=== PATIENT | female | born 1985 | race Caucasian/White ===

== ENCOUNTER 2018-06-08 11:33 | Inpatient (IN) | payer OTHER ==
[~2018-06-08 11:33] MED LIST: OXYTOCIN 30 UNITS/LR 500 ML BAG IV; PROPOFOL 200 MG INJ
[2018-06-08 12:43] LABS: ADD MAN DIFF? NO
[2018-06-08 12:49] LABS: BASOPHILS % 0.4 % (0.0-2.0); EOSINOPHILS # 0.2 10^3/ul (0.0-0.5); EOSINOPHILS % 2.9 % (0.0-7.0); HEMATOCRIT 32.1 % (37.0-47.0); HEMOGLOBIN 10.6 g/dl (12.0-16.0); LYMPHOCYTES # 1.1 10^3/ul (0.8-2.9); LYMPHOCYTES % 15.3 % (15.0-51.0); MEAN CORPUSCULAR HEMOGLOBIN 29.8 pg (29.0-33.0); MEAN CORPUSCULAR VOLUME 90.2 fl (82.0-101.0); MEAN PLATELET VOLUME 10.2 fl (7.4-10.4); MONOCYTE # 0.5 10^3/ul (0.3-0.9); MONOCYTES % 6.5 % (0.0-11.0); NEUTROPHIL # 5.1 10^3/ul (1.6-7.5); NEUTROPHILS % 74.3 % (39.0-77.0); PLATELET COUNT 214 10^3/UL (140-415); RED BLOOD COUNT 3.56 10^6/ul (4.20-5.40); RED CELL DISTRIBUTION WIDTH 13.1 % (11.5-14.5)
[2018-06-08 12:49] LABS: WHITE BLOOD COUNT 6.9 10^3/ul (4.8-10.8)
[2018-06-08] MEDS: LACTATED RINGER'S 1,000 ML IV (12:58)
[2018-06-08 13:08] LABS: INR 0.95; PROTIME 12.8 Sec (11.9-14.9)
[2018-06-08 13:09] LABS: PARTIAL THROMBOPLASTIN TIME 26.7 Sec (23.0-35.0)
[2018-06-08] MEDS: LABETALOL HCL 20MG INJ IV ×2 (13:25→19:20)
[2018-06-08] MEDS ORDERED: MISOPROSTOL 200 MCG TAB PR ×2 (13:30→15:30)
[2018-06-08] MEDS: MAGNESIUM SULFATE 4 GM/100 ML 100 ML IV (13:30)
[2018-06-08] MEDS ORDERED: LEVALBUTEROL (NEB) 1.25 MG/0.5 ML AMP HHN (13:30)
[2018-06-08] MEDS ORDERED: OXYTOCIN 30 UNITS/LR 500 ML IV ×2 (13:30→15:30)
[2018-06-08] MEDS ORDERED: CARBOPROST 250 MCG INJ IM ×2 (13:30→15:30)
[2018-06-08] MEDS ORDERED: METHYLERGONOVINE 0.2 MG INJ IM (13:30)
[2018-06-08] MEDS ORDERED: LABETALOL HCL 20MG INJ IV (13:30)
[2018-06-08] MEDS ORDERED: FENTAnyl 50 MCG/ML VIAL IV ×2 (13:30)
[2018-06-08] MEDS ORDERED: DIPHENHYDRAMINE 50 MG INJ IV ×3 (13:30→15:30)
[2018-06-08] MEDS ORDERED: ZOLPIDEM 5 MG TAB PO (13:30)
[2018-06-08] MEDS ORDERED: ONDANSETRON 4 MG INJ IV ×3 (13:30→15:30)
[2018-06-08] MEDS ORDERED: KETOROLAC 30 MG INJ IV (13:30)
[2018-06-08] MEDS ORDERED: HYDROmorphONE 1 MG/5 ML IV SYRINGE IV ×3 (13:30)
[2018-06-08] MEDS ORDERED: hydrALAzine 20 MG INJ IV (13:30)
[2018-06-08] MEDS ORDERED: NALOXONE (0.4 MG/ML) INJ IV (13:30)
[2018-06-08] MEDS ORDERED: HYDROmorphONE 0.5 MG/0.5 ML SYG IV ×2 (13:30)
[2018-06-08] MEDS ORDERED: IPRATROPIUM (NEB) 0.5 MG/2.5 ML AMP HHN (13:30)
[2018-06-08] MEDS ORDERED: morphine SULFATE/PF (10 MG/10 ML) INJ (13:34)
[2018-06-08] MEDS ORDERED: OXYTOCIN 10 UNIT INJ (13:35)
[2018-06-08] MEDS: ONDANSETRON 4 MG INJ IV (13:37)
[2018-06-08] MEDS: METOCLOPRAMIDE 10 MG INJ IV (13:37)
[2018-06-08 13:38] LABS: ADD UMIC NO; UR ASCORBIC ACID NEGATIVE (NEGATIVE); UR BILIRUBIN (Dip) NEGATIVE (NEGATIVE); UR BLOOD (Dip) NEGATIVE (NEGATIVE); UR CLARITY CLEAR (CLEAR); UR COLOR STRAW (YELLOW); UR GLUCOSE (Dip) NEGATIVE (NEGATIVE); UR KETONES (Dip) NEGATIVE (NEGATIVE); UR LEUKOCYTE ESTERASE (Dip) NEGATIVE Leu/ul (NEGATIVE); UR NITRITE (Dip) NEGATIVE (NEGATIVE); UR SPECIFIC GRAVITY (Dip) 1.002 (1.003-1.030); UR TOTAL PROTEIN (Dip) NEGATIVE (NEGATIVE); UR UROBILINOGEN (Dip) NEGATIVE (NEGATIVE)
[2018-06-08] MEDS: FAMOTIDINE 20 MG INJ IV (13:38)
[2018-06-08] MEDS: DEXAMETHASONE 10 MG/ML 1 ML INJ IM (13:39)
[2018-06-08 13:48] LABS: URIC ACID 4.6 mg/dl (3.1-7.9)
[2018-06-08 13:49] LABS: ALANINE AMINOTRANSFERASE 32 IU/L (13-69); ALBUMIN 3.8 g/dl (3.3-4.9); ALBUMIN/GLOBULIN RATIO 1.18; ALKALINE PHOSPHATASE 143 IU/L (42-121); ANION GAP 7 (5-13); ASPARTATE AMINO TRANSFERASE 32 IU/L (15-46); BILIRUBIN,INDIRECT 0.1 mg/dl (0-1.1); BILIRUBIN,TOTAL 0.1 mg/dl (0.2-1.3); BLOOD UREA NITROGEN 10 mg/dl (7-20); CALCIUM 9.6 mg/dl (8.4-10.2); CARBON DIOXIDE 23 mmol/L (21-31); CHLORIDE 105 mmol/L (97-110); CREATININE 0.43 mg/dl (0.44-1.00); Estimated GFR > 60 mL/min (>60); GLUCOSE 79 mg/dl (70-220); POTASSIUM 4.4 mmol/L (3.5-5.1); SODIUM 135 mmol/L (135-144)
[2018-06-08] MEDS: MAGNESIUM SULFATE 20 GM/500 ML 500 ML IV ×2 (14:05→22:57)
[2018-06-08] MEDS: LACTATED RINGER'S 1,000 ML IV* (15:14)
[2018-06-08] MEDS ORDERED: WITCH HAZEL/GLYCERIN PAD PR (15:30)
[2018-06-08] MEDS ORDERED: LANOLIN HPA 1 PKT TOP (15:30)
[2018-06-08] MEDS ORDERED: DIPHENHYDRAMINE 25 MG CAP PO (15:30)
[2018-06-08] MEDS ORDERED: SENNA/DOCUSATE NA (8.6MG/50MG) TAB PO (15:30)
[2018-06-08] MEDS ORDERED: ONDANSETRON 4 MG TAB PO (15:30)
[2018-06-08] MEDS ORDERED: BENZOCAINE 20% 56 ML SPRAY TOP (15:30)
[2018-06-08] MEDS ORDERED: HYDROCODONE/APAP (5/325) TAB PO (15:30)
[2018-06-08] MEDS ORDERED: DIBUCAINE 1% 30 GM OINT TOP (15:30)
[2018-06-08] MEDS ORDERED: NA PHOSPHATE/BIPHOS 133 ML ENEMA PR (15:30)
[2018-06-08] MEDS ORDERED: MAGNESIUM HYDROXIDE 30ML CUP PO (15:30)
[2018-06-08] MEDS ORDERED: PHENYLephrine (100 MCG/ML) 10ML SYG (15:37)
[2018-06-08 16:10] LABS: HEPATITIS B SURFACE ANTIGEN NEGATIVE (NEGATIVE)
[2018-06-08] MEDS: OXYTOCIN 30 UNITS/LR 500 ML IV (16:58)
[2018-06-08] MEDS: CEFAZOLIN 2 GM/50 ML (PMX) 50 ML IVPB (18:21)
[2018-06-08 18:58] LABS: MAGNESIUM 4.3 mg/dl (1.7-2.5)
[2018-06-08] MEDS: SENNA/DOCUSATE NA (8.6MG/50MG) TAB PO (21:00)
[2018-06-09] MEDS: LACTATED RINGER'S 1,000 ML IV* ×4 (00:04→23:14)
[2018-06-09 01:16] LABS: MAGNESIUM 4.8 mg/dl (1.7-2.5)
[2018-06-09] MEDS: KETOROLAC 30 MG INJ IV (05:05)
[2018-06-09] MEDS: LEVOTHYROXINE 50 MCG TAB PO (06:18)
[2018-06-09 08:26] LABS: ADD MAN DIFF? NO
[2018-06-09 08:29] LABS: BASOPHILS % 0.2 % (0.0-2.0); EOSINOPHILS # 0.1 10^3/ul (0.0-0.5); EOSINOPHILS % 0.6 % (0.0-7.0); HEMATOCRIT 27.5 % (37.0-47.0); LYMPHOCYTES # 1.2 10^3/ul (0.8-2.9); LYMPHOCYTES % 12.6 % (15.0-51.0); MEAN CORPUSCULAR HEMOGLOBIN 30.2 pg (29.0-33.0); MEAN CORPUSCULAR HGB CONC 32.7 g/dl (32.0-37.0); MEAN CORPUSCULAR VOLUME 92.3 fl (82.0-101.0); MEAN PLATELET VOLUME 10.1 fl (7.4-10.4); MONOCYTE # 0.8 10^3/ul (0.3-0.9); NEUTROPHIL # 7.5 10^3/ul (1.6-7.5); PLATELET COUNT 199 10^3/UL (140-415); RED BLOOD COUNT 2.98 10^6/ul (4.20-5.40); RED CELL DISTRIBUTION WIDTH 13.2 % (11.5-14.5)
[2018-06-09 08:29] LABS: WHITE BLOOD COUNT 9.6 10^3/ul (4.8-10.8)
[2018-06-09 08:53] LABS: MAGNESIUM 5.3 mg/dl (1.7-2.5)
[2018-06-09] MEDS: SENNA/DOCUSATE NA (8.6MG/50MG) TAB PO ×2 (09:01→20:27)
[2018-06-09] MEDS: MAGNESIUM SULFATE 20 GM/500 ML 500 ML IV (09:01)
[2018-06-09] MEDS: NIFEdipine (XL) 60 MG TAB PO (10:45)
[2018-06-09 14:46] LABS: MAGNESIUM 4.9 mg/dl (1.7-2.5)
[2018-06-09] MEDS: HYDROCODONE/APAP (5/325) TAB PO (20:28)
[2018-06-10] MEDS: HYDROCODONE/APAP (5/325) TAB PO ×2 (02:28→22:13)
[2018-06-10] MEDS: LEVOTHYROXINE 50 MCG TAB PO (05:44)
[2018-06-10] MEDS: LACTATED RINGER'S 1,000 ML IV* ×2 (07:14→15:14)
[2018-06-10] MEDS: NIFEdipine (XL) 60 MG TAB PO (08:33)
[2018-06-10] MEDS: SENNA/DOCUSATE NA (8.6MG/50MG) TAB PO ×2 (08:33→21:15)
[2018-06-10] MEDS: MEASLES,MUMPS,RUBELLA VACCINE INJ SC* (08:38)
[2018-06-10] MEDS: DIPHTH/TET/ACEL PERTUSS (ADULT) 0.5 ML VIAL IM* (08:38)
[2018-06-10] MEDS: VARICELLA VACCINE LIVE/PF 1,350 UNIT/0.5 ML ML SC* (08:39)
[2018-06-10] MEDS: LABETALOL 200 MG TAB PO ×3 (14:30→22:13)
[2018-06-10 15:19] LABS: RAPID PLASMA REAGIN NONREACTIVE (NR)
[2018-06-11] MEDS: LEVOTHYROXINE 50 MCG TAB PO (05:32)
[2018-06-11] MEDS: NIFEdipine (XL) 60 MG TAB PO (09:20)
[2018-06-11] MEDS: LABETALOL 200 MG TAB PO (09:21)
[2018-06-11] MEDS: SENNA/DOCUSATE NA (8.6MG/50MG) TAB PO (09:21)
[2018-06-11] MEDS: HYDROCODONE/APAP (5/325) TAB PO (13:13)
== END 2018-06-11 15:20 | disposition home or self-care (01) | DRG 788 ==
LOC: L-D 11:33 → PP1 20:57
PROVIDERS: Specialist
PROC: 10D00Z1 Extraction of Products of Conception, Low, Open Approach (ICD-10-PCS; principal; 2018-06-08)
PROC: 0UB10ZZ Excision of Left Ovary, Open Approach (ICD-10-PCS; 2018-06-08)
DX: O11.4 Pre-existing hypertension with pre-eclampsia, complicating childbirth (principal); O10.02 Pre-existing essential hypertension complicating childbirth; O99.214 Obesity complicating childbirth; E66.01 Morbid (severe) obesity due to excess calories; O99.284 Endocrine, nutritional and metabolic diseases complicating childbirth; E03.9 Hypothyroidism, unspecified; E78.5 Hyperlipidemia, unspecified; O34.211 Maternal care for low transverse scar from previous cesarean delivery; O34.83 Maternal care for other abnormalities of pelvic organs, third trimester; N83.202 Unspecified ovarian cyst, left side; Z3A.36 36 weeks gestation of pregnancy; Z37.0 Single live birth
CPT/HCPCS: 80053; 81003; 83735; 84560; 85025; 85384; 85610; 85730; 86592; 86850; 86900; 86901; 87340; 88305; 99464